=== PATIENT | female | born 1985 | race Caucasian/White ===

== ENCOUNTER 2018-12-25 05:35 | Day surgery (SDC) | payer OTHER ==
[~2018-12-25] VITALS: Ht 162.6 cm; Wt 70.3 kg
--- NOTE | ~2018-12-25 | O ---
[facility] [place] [address] OPERATIVE REPORT Name: GIANCARLO WAY Room #: 150-8 [facility]#: [id number] Admission: 12/25/18 ������������������ Attend Phys: Heidi Powell, Discharge: ������������������ Date of : 87 Report #: [id number] THIS REPORT FOR: //name// CC: Werner Powell DATE OF SERVICE: 12/25/2018 PREOPERATIVE DIAGNOSES: 1. Left radial head fracture. 2. Right elbow contracture. POSTOPERATIVE DIAGNOSES: 1. Left radial head fracture that is healed. 2. Left elbow contracture. PROCEDURE PERFORMED: 1. Left radial head fracture exploration. 2. Left elbow contracture release. SURGEON: Heidi Powell MD ANESTHESIA: General mask anesthesia with a preoperative peripheral nerve block. COMPLICATIONS: None. CONDITION: Stable. DISPOSITION: To the recovery room. TOURNIQUET TIME: 43 minutes. INTRAOPERATIVE FINDINGS: The patient's radial head fracture appeared to be completely consolidated. There was noted thinning of the cartilage, but no significant step-off was noted. The elbow was stable, and so the decision was made to not to tear down the fracture in order to provide fixation. The fracture appeared to be completely consolidated under direct visualization. INDICATIONS: The patient is a 33-year-old female with the above-mentioned diagnosis. She elects for operative treatment. The risks, benefits, alternatives and complications were discussed including but not limited to infection, damage to vessels or nerves, nonunion, malunion, hardware failure, hardware stiffness. We discussed most likely she will not fully regain all of her range of motion to her elbow and that a fairly aggressive physical therapy is necessary. The patient's mother was at her bedside. The correct extremity was identified and labeled by myself after verbal confirmation of the patient as [facility] [address] [place] [address] OPERATIVE REPORT Name: GIANCARLO WAY Room #: 150-8 [facility]#: [id number] Admission: 12/25/18 ������������������ Attend Phys: Heidi Powell, Discharge: ������������������ Date of : [birth year] Report #: [id number] well as visual confirmation and signed informed consent. DESCRIPTION OF PROCEDURE: The patient was brought back to the operating room and placed on the operating table in supine position. She received preoperative antibiotics. Tourniquet was placed over padding on the patient's left upper extremity. Left upper extremity was sterilely prepped and draped in usual fashion. Final timeout was taken to verify correct patient, operative procedure, operative site, all concurred. The arm was elevated, exsanguinated and the tourniquet inflated. Next, a modified Fuentes approach was done to the lateral side of the elbow following the lateral epicondyle up the shaft. Dissection was carried down through subcutaneous tissue with tenotomy scissors. A forearm was in a neutral pronated position. The Fuentes interval was identified and entered. The capsule was elevated off the lateral aspect of the humerus. There was a significant amount of synovitis. This was debrided with a rongeur and the capsule was released, and there was significant amount of synovitis. This was debrided. Of note, in the preoperative holding area after the patient had a peripheral nerve block, I was able to fully pronate and nearly fully supinate her forearm. Her elbow flexion and extension remained unchanged. Next, the anterior capsule was released. Posterior capsule was released as well, taking care to avoid medial penetration of any bellamy elevator. The annular ligament was incised anterior to the lateral ligamentous complex. The radial head was evaluated. It surprisingly looked completely healed at the fracture site. I was able to see where the fracture site was. However, it was completely covered with healing tissue and bone. The cartilage had somewhat of a frayed appearance, but overall there was no significant step-off. The elbow was taken through a range of motion after the capsular release. She had a near full supination. She did have full pronation, full elbow flexion and full extension. The fluoroscopy was brought in multiple times to evaluate the fracture. The fracture line was still visible under fluoroscopy; however, under direct visualization, the fracture line was not notable. It demonstrated that any small fragments were removed. The wound was thoroughly irrigated. The deep fascia and the annular ligament reapproximated separately with running locked 2-0 Ethibond suture. The elbow rotation was again checked after gently repairing the annular ligament. There was no loss of range of motion. The wound had previously been thoroughly irrigated. Hemostasis was achieved. The other cartilaginous surfaces looked to be in excellent condition. The skin was closed with 3-0 nylon suture. The wound was dressed with Adaptic and sterile gauze. She was placed in a bulky dressing and a posterior slab elbow splint. All fingers were pink with brisk capillary refill at the conclusion of the case after deflation of the tourniquet. All sponge and needle counts were correct. The patient was transferred to postoperative recovery room in stable condition. ��������������������������������������������� ���������������������������������������� By: ��������������������������������������������� [id number] Heidi Powell MD /nt
[~2018-12-25 05:35] MED LIST: TRAMADOL 50 MG50 MG PO
[2018-12-25 10:16] VITALS: BP 120/72
[2018-12-25 12:48] VITALS: BP 120/72
== END 2018-12-25 13:48 | disposition home or self-care (01) ==
LOC: OR 05:35 → TBA 05:35 → OR 10:43
DX: M24.522 Contracture, left elbow (principal); S52.122D Displaced fracture of head of left radius, subsequent encounter for closed fracture with routine healing; F31.9 Bipolar disorder, unspecified; F41.9 Anxiety disorder, unspecified; J45.909 Unspecified asthma, uncomplicated; D64.9 Anemia, unspecified; Z98.890 Other specified postprocedural states; Z79.899 Other long term (current) drug therapy; X58.XXXD Exposure to other specified factors, subsequent encounter
CPT/HCPCS: 50010; 50101; 50386; 51739; 56525; 56527; 57006; 57091; 57178; 62110; 62900; 70005